=== PATIENT | female | born 1950 | race Caucasian/White ===

== ENCOUNTER → 2016-12-03 | Day surgery (SDC) | payer MEDICARE, OTHER ==
[~2016-12-03] VITALS: Ht 172.7 cm; Wt 106.4 kg
[~2016-12-03] MED LIST: "\\\"PREP SPRAY\\\"-TIN4 OZ"; AMARYL4 MG PO; CARDIZEM CD360 MG PO; CRANBERRY200 MG PO; ECOTRIN325 MG PO; FARXIGA10 MG PO; GLUCOPHAGE1000 MG PO; KEFLEX500 MG PO; LEVOTHROID (S200 MCG PO; LIPITOR20 M1 PO; LOPRESSOR50 MG PO; MULTI VITAMIN1 EACH PO; NORCO 5-325 TA1 EACH PO; PRINIVIL (ZESTRI5 MG PO; RECTIV30 GM TOP; ROXICODONE 5MG (5 MG PO; SYNTHROID200 MCG PO; TOPROL XL100 MG PO; TRULICITY1.5 MG/0.5 SUB-Q; TYLENOL/COD#31 TAB PO; TYLENOL325 MG PO; VALIUM5 MG PO; VERAPAMIL ER240 MG PO; XALATAN2.5 ML OPHTH
--- NOTE | ~2016-12-03 | OR ---
PATIENT'S NAME: NICOLLE CONDON [facility] AGE: 66 Y [address] ROOM: [place] [address] LOCATION: [facility] ADMIT DATE: 12/03/2016 OR/Procedure Report DISCHARGE DATE: FAMILY PHYSICIAN: PHYSICIAN, NO ATTENDING PHYSICIAN: PURNIMA WRIGHT SURGEON: Purnima Wright MD [employer] SUPERVISOR: Chito Diamond PA-C DATE OF PROCEDURE: 12/03/2016 PREOPERATIVE DIAGNOSIS: Left symptomatic great ingrown toenail. POSTOPERATIVE DIAGNOSIS: Left symptomatic great ingrown toenail. PROCEDURE PERFORMED: Removal of left great ingrown toenail. ANESTHESIA: Local with sedation. FLUIDS: See anesthesia report. TOURNIQUET: None. ESTIMATED BLOOD LOSS: Minimal. SPECIMENS: Left great toenail. COMPLICATIONS: None. DISPOSITION: Stable, in PACU. COUNTS: All counts were correct. INDICATIONS: Ms. Condon is a pleasant, 66-year-old female who underwent the noted procedure above. The risks, benefits, and alternatives to pursuing surgical intervention were discussed with the patient in detail. I marked the patient's left foot, indicating the correct surgical site. Anesthesia was consulted for their perioperative evaluation of the patient. DESCRIPTION OF PROCEDURE: The patient was brought from the holding area to the operating room. A time-out was performed. Antibiotics were administered for perioperative prophylaxis. The left lower extremity was then prepped and draped in a sterile fashion. I turned my attention to the left great toe. Using a [place] elevator and dissecting scissors, I removed the ingrown toenail of the great toe. I moved it back to a stable base. I maintained the base of the nail bed. The wound PATIENT'S NAME: NICOLLE CONDON [facility] AGE: 66 Y [address] ROOM: [place] [address] LOCATION: [facility] [place] ADMIT DATE: 12/03/2016 OR/Procedure Report DISCHARGE DATE: FAMILY PHYSICIAN: PHYSICIAN, NO ATTENDING PHYSICIAN: PURNIMA WRIGHT was then copiously irrigated. Xeroform was placed under the nail bed fold in order to cover it, followed by 4x4s, Webril, and Bryce bandage. The patient was then transferred from the operating table onto the hospital bed and brought to the recovery room in stable condition. There were no intraoperative complications noted. Of note, my PA, Chito Diamond PA-C, played an integral role in intraoperative care of this patient. This included preoperative positioning, intraoperative expert retraction, and closing and dressing functions. IMPRESSION: The patient is status post the noted procedure above. PLAN: The patient will be heel weightbearing on the left lower extremity in a postop shoe. She will be encouraged to rest, ice, and elevate the foot going forward. She will be discharged home from the PACU provided she meets PACU discharge criteria. She will follow up with me in 2 weeks for her first postoperative visit. MD GATO JACKMAN/livier /[id number] d: 12/03/16 1317 t: 12/03/16 1404, OPERATIVE SUMMARY
[2016-12-03 09:32] LABS: BASOPHIL # 0.1 K/uL (0.0-0.2); BASOPHIL % 0.6 %; EOSINOPHIL # 0.2 K/uL (0.0-0.5); EOSINOPHIL % 2.1 %; HEMATOCRIT 45.1 % (33.0-46.0); HEMOGLOBIN 14.8 g/dL (10.0-15.0); IMMATURE GRANULOCYTE # 0.1 K/uL (0.0-0.3); IMMATURE GRANULOCYTE % 0.5 %; LYMPHOCYTE # 2.5 K/uL (0.8-4.0); LYMPHOCYTE % 22.8 %; MCH 30.3 pg (27.0-34.0); MCHC 32.8 gm/dL (32.0-36.5); MCV 92.4 fl (83.0-98.0); MONOCYTE # 0.7 K/uL (0.0-1.0); MONOCYTE % 6.8 %; MPV 9.9 fl (9.4-12.4); NEUTROPHIL # (ANC) 7.3 K/uL (1.8-7.8); NEUTROPHIL % 67.2 %; NRBC % 0 /100WBC (0-0.00); PLATELET COUNT 319 K/uL (150-450); RBC 4.88 M/uL (3.50-5.50); RDW-CV 12.9 % (11.9-14.6); WBC 10.8 K/uL (4.0-11.0)
== END | disposition disaster alternative care site (69) ==
LOC: GPOC 12-02 17:00 → GSDC 08:45
PROVIDERS: Orthopaedic Surgery Adult Reconstructive Orthopaedic Surgery
PROC: 0HBRXZZ Excision of Toe Nail, External Approach (ICD-10-PCS; principal; 2016-12-03)
DX: L60.0 Ingrowing nail (principal); E11.8 Type 2 diabetes mellitus with unspecified complications; I10 Essential (primary) hypertension; E03.9 Hypothyroidism, unspecified; E05.00 Thyrotoxicosis with diffuse goiter without thyrotoxic crisis or storm; E78.00 Pure hypercholesterolemia, unspecified; Z98.890 Other specified postprocedural states; Z88.5 Allergy status to narcotic agent; Z79.899 Other long term (current) drug therapy
CPT/HCPCS: J0690; J2001; J7030